=== PATIENT | female | born 2000 | race American Indian/Alaskan Native ===

== ENCOUNTER 2018-07-02 22:27 | Emergency (ER) | payer BC ==
[2018-07-02] MEDS ORDERED: NACL 0.9% 500 ML 500 ML IV ONE (22:53)
[2018-07-02] MEDS ORDERED: TYLENOL PO ONE (22:54)
[2018-07-02 23:35] LABS: Basophils % (Auto) 0.4 % (0.0-1.8); Eosinophils # (Auto) 0.1 K/mm3 (0.0-0.4); Eosinophils % (Auto) 0.9 % (0.0-4.3); Hematocrit 31.9 % (30.3-42.9); Hemoglobin 11.2 gm/dl (10.1-14.3); Lymphocytes # (Auto) 1.3 K/mm3 (1.2-5.4); Lymphocytes % (Auto) 13.3 % (13.4-35.0); Mean Corpuscular HGB Conc 35 % (30-34); Mean Corpuscular Hemoglobin 32 pg (28-32); Mean Corpuscular Volume 91 fl (79-97); Monocytes # (Auto) 0.9 K/mm3 (0.0-0.8); Monocytes % (Auto) 9.1 % (0.0-7.3); Platelet Count 260 K/mm3 (140-440); Red Blood Count 3.52 M/mm3 (3.65-5.03); Red Cell Distribution Width 13.6 % (13.2-15.2)
--- NOTE | 2018-07-02 23:35 | XRay Report ---
FINAL REPORT PROCEDURE: XR FOOT 2V RT TECHNIQUE: RIGHT foot radiographs, AP and lateral views. HISTORY: foot injury COMPARISON: No prior studies are available for comparison. FINDINGS: There is significant osseous remodeling involving the distal tibia and fibula as well as the osseous structures around the ankle including talus and calcaneus. 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 There is significant narrowing of the remaining joint spaces. No acute fracture is identified. There is diffuse soft tissue swelling. IMPRESSION: Advanced osseous remodeling of the ankle and foot region as discussed above. Significant diffuse soft tissue swelling. No acute fracture is identified.
[2018-07-02 23:46] LABS: INR 1.02 (0.87-1.13)
[2018-07-02 23:54] LABS: Alanine Aminotransferase 24 units/L (7-56); Albumin 3.2 g/dL (3.9-5); BUN/Creatinine Ratio 13; Blood Urea Nitrogen 8 mg/dL (7-17); Calcium 8.8 mg/dL (8.4-10.2); Hemolysis Index 19
[2018-07-03 03:35] LABS: Bacteria,Urine 3+ /HPF (Negative); Bilirubin,Urine NEG (Negative); Blood,Urine NEG (Negative); Color,Urine Amber (Yellow); Mucus,Urine 3+ /HPF
[2018-07-03] MEDS ORDERED: NACL 0.9% 500 ML 500 ML ONE (06:03)
[2018-07-03] MEDS ORDERED: K-DUR PO ONE (06:18)
[2018-07-03] MEDS ORDERED: DILAUDID IV ONE ×2 (06:29→07:42)
[2018-07-03] MEDS ORDERED: ZOFRAN IV ONE ×2 (06:29→07:51)
[2018-07-03] MEDS ORDERED: XYLOCAINE 1%/ EPI 1:100,000 INFILTRATI ONE (06:30)
[2018-07-03] MEDS ORDERED: CLEOCIN 600 MG/50 mL 600 MG/50 ML BAG IV ONE (06:32)
[2018-07-03 07:43] LABS: HCG Qualitative,Urine Negative (Negative)
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
[2018-07-03 09:54] VITALS: BP 120/64
== END 2018-07-03 09:55 | disposition home or self-care (01) ==
LOC: ED 22:27
DX: L03.115 Cellulitis of right lower limb (principal); L02.611 Cutaneous abscess of right foot; E87.6 Hypokalemia; N39.0 Urinary tract infection, site not specified; Z79.899 Other long term (current) drug therapy
CPT/HCPCS: 10060; 36415; 73620; 80053; 81001; 81025; 82140; 82805; 85025; 85610; 87040; 87076; 87086; 87186; 96365; 96375; 96376; 99285; J1170; J2405; J7040; 96361

== ENCOUNTER 2018-07-15 07:20 | Emergency (ER) | payer BC ==
[2018-07-15 07:53] VITALS: BP 121/54
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
[2018-07-15] MEDS ORDERED: CLEOCIN PO ONE (09:49)
[2018-07-15] MEDS ORDERED: PERCOCET 5/325 PO ONE (09:49)
== END 2018-07-15 10:38 ==
LOC: ED 07:20
DX: S91.351A Open bite, right foot, initial encounter (principal); T63.301A Toxic effect of unspecified spider venom, accidental (unintentional), initial encounter; L03.115 Cellulitis of right lower limb; Y92.89 Other specified places as the place of occurrence of the external cause
CPT/HCPCS: 99283